=== PATIENT | female | born 1950 | race Caucasian/White ===

== ENCOUNTER → 2016-12-16 | Outpatient (CLI) | payer MEDICARE ==
[~2016-12-16] MED LIST: BUPIVACAINE HCL 0.5% 10 ML VIAL As Ordered ONE; CONRAY-43 43% 50ML VIAL (Q9960) As Ordered ONE; LIDOCAINE 1% MDV 20ML VIAL As Ordered ONE; methylPREDNISolone SUSP 40 MG/ML (DEPO-medrol) VIAL (J1030) As Ordered ONE
--- NOTE | 2016-12-16 17:40 | REP ---
Right hip injection The procedure was performed under the direct supervision of Dr. Watts. The benefits and risks including but not limited to pain infection and bleeding and anaphylaxis were explained to the patient and informed consent was obtained. The right femoral neck was localized using fluoroscopic guidance. The skin was prepped and draped in a sterile fashion. 1% lidocaine was used as a local anesthetic. Using fluoroscopic guidance a 22-gauge spinal needle was inserted and advanced to the femoral neck. 0.5 ml of Conray 43 was injected to verify placement. 7 ml of a solution containing 5 ml of 0.5% Marcaine and 2 ml of Depo-Medrol 40 mg was injected. The needle was then removed. The patient tolerated the procedure well and there were no immediate complications. 3 seconds of fluoro time was utilized for this procedure. Reviewed by CRISPIN Santiago 12/16/2016 03:14 PSigned by Octavio Watts MD 12/16/2016 05:32 P
== END ==
LOC: M RADPRO 09:57
PROVIDERS: ATTEND Orthopaedic Surgery
DX: M25.551 Pain in right hip (principal); M16.11 Unilateral primary osteoarthritis, right hip
CPT/HCPCS: 20610; 77002; J1030; Q9960

== ENCOUNTER → 2017-03-09 | Outpatient (CLI) | payer MEDICARE ==
[~2017-03-09] MED LIST changes: -LIDOCAINE 1% MDV 20ML VIAL As Ordered ONE
--- NOTE | 2017-03-10 09:14 | REP ---
Right hip injection The procedure was performed under the direct supervision of Dr. Watts. The benefits and risks including but not limited to pain infection bleeding and anaphylaxis were explained to the patient and informed consent was obtained. The right femoral neck was localized using fluoroscopic guidance. The skin was prepped and draped in a sterile fashion. 1% lidocaine was used as a local anesthetic. Using fluoroscopic guidance a 22-gauge spinal needle was inserted and advanced to the femoral neck. 0.5 ml of Conray 43 was injected to verify placement. 7 ml of a solution containing 5 ml of 0.5% Marcaine and 2 ml of Depo Medrol 40 mg was injected. The needle was then removed. The patient tolerated the procedure well and there were no immediate complications. 0.1 minutes of fluoro time was utilized for this procedure. Reviewed by CRISPIN Santiago 03/09/2017 02:15 PSigned by Octavio Watts MD 03/10/2017 09:05 A
== END ==
LOC: M RADPRO 10:04
PROVIDERS: ATTEND Family Medicine
DX: M16.11 Unilateral primary osteoarthritis, right hip (principal)
CPT/HCPCS: 20610; 77002; J1030; Q9960

== ENCOUNTER → 2018-08-14 | Outpatient (REF) | payer MEDICARE ==
[2018-08-14 13:14] LABS: HEMATOCRIT 24.2 % (36.0-47.0); MEAN CORPUSCULAR HEMOGLOBIN 26.7 pg (27.0-33.0); MEAN CORPUSCULAR HGB CONC 28.5 g/dl (32.0-36.5); MEAN CORPUSCULAR VOLUME 93.8 fl (80.0-96.0); PLATELET COUNT, AUTOMATED 306 10^3/uL (150-450); RED BLOOD COUNT 2.58 10^6/uL (4.00-5.40); WHITE BLOOD COUNT 7.6 10^3/uL (4.0-10.0)
[2018-08-14 13:50] LABS: HEMOGLOBIN 6.9 g/dl (12.0-15.5)
[2018-08-14 18:56] LABS: BLOOD UREA NITROGEN 13 MG/DL (7-18); CALCIUM LEVEL 8.8 MG/DL (8.8-10.2); CARBON DIOXIDE LEVEL 24 MEQ/L (21-32); CHLORIDE LEVEL 104 MEQ/L (98-107); CREATININE FOR GFR 0.94 MG/DL (0.55-1.30); GLOMERULAR FILTRATION RATE > 60.0 (>45); GLUCOSE, FASTING 184 MG/DL (70-100); POTASSIUM SERUM 4.1 MEQ/L (3.5-5.1); SODIUM LEVEL 139 MEQ/L (136-145)
== END ==
LOC: M LAB REF 12:21
PROVIDERS: ATTEND Orthopaedic Surgery
DX: Z47.1 Aftercare following joint replacement surgery (principal); T81.40XA Infection following a procedure, unspecified, initial encounter

== ENCOUNTER → 2018-08-20 | Outpatient (REF) | payer MEDICARE ==
[2018-08-20 10:51] LABS: HEMOGLOBIN 10.1 g/dl (12.0-15.5); MEAN CORPUSCULAR HEMOGLOBIN 27.9 pg (27.0-33.0); MEAN CORPUSCULAR HGB CONC 29.7 g/dl (32.0-36.5); MEAN CORPUSCULAR VOLUME 93.9 fl (80.0-96.0); PLATELET COUNT, AUTOMATED 330 10^3/uL (150-450); RED BLOOD COUNT 3.62 10^6/uL (4.00-5.40); WHITE BLOOD COUNT 7.3 10^3/uL (4.0-10.0)
[2018-08-20 11:10] LABS: BLOOD UREA NITROGEN 19 MG/DL (7-18); CALCIUM LEVEL 8.9 MG/DL (8.8-10.2); CARBON DIOXIDE LEVEL 24 MEQ/L (21-32); CHLORIDE LEVEL 105 MEQ/L (98-107); CPK CREATINE PHOSPHOKINASE 105 U/L (26-192); CREATININE FOR GFR 0.98 MG/DL (0.55-1.30); GLOMERULAR FILTRATION RATE > 60.0 (>45); GLUCOSE, FASTING 163 MG/DL (70-100); POTASSIUM SERUM 3.9 MEQ/L (3.5-5.1); SODIUM LEVEL 140 MEQ/L (136-145)
== END ==
LOC: M LAB REF 10:25
PROVIDERS: ATTEND Orthopaedic Surgery
DX: T84.52XA Infection and inflammatory reaction due to internal left hip prosthesis, initial encounter (principal); Z79.2 Long term (current) use of antibiotics; L76.34 Postprocedural seroma of skin and subcutaneous tissue following other procedure